=== PATIENT | male | born 1980 | race Caucasian/White ===

== ENCOUNTER 2020-11-22 21:42 | Emergency (ER) | payer OTHER ==
[2020-11-22 22:22] LABS: BASOPHIL 0.7 % (0-2); EOSINOPHIL 4.5 % (0-5); HCT 44.1 % (42.0-52.0); HGB 15.1 g/dl (13.2-18.0); LYMPHOCYTE 35.2 % (15-48); MCH 30.3 pg (25.0-31.0); MCHC 34.2 g/dL (32.0-36.0); MCV 88.6 fL (78.0-100.0); MONOCYTE 7.5 % (0-12); MPV 10.2 fL (6.0-9.5); NRBC 0; PLT 239 K/uL (150-400); RBC 4.98 M/uL (4.70-6.00); RDW 12.2 % (11.5-14.0); WBC 8.6 K/uL (4.0-10.5)
[2020-11-22 22:30] LABS: INR 0.96 (0.9-1.2); PROTHROMBIN TIME 12.2 SECONDS (11.8-13.4); PTT 26.6 SECONDS (24.4-34.7)
[2020-11-22 22:36] LABS: ALBUMIN 4.3 g/dL (3.4-5.0); BILIRUBIN - TOTAL 0.6 mg/dL (0.2-1.0); BUN/CREAT RATIO (CALC) 5.9 RATIO; CREATININE 1.18 mg/dL (0.67-1.17); GLOBULIN (CALCULATION) 3.5 g/dL; POTASSIUM 3.4 mmol/L (3.5-5.1); TOTAL PROTEIN 7.8 g/dL (6.4-8.2)
[2020-11-23] MEDS ORDERED: PRILOSEC20 MG PO (02:23)
== END 2020-11-23 02:35 | disposition home or self-care (01) ==
LOC: FER 21:42
PROVIDERS: Emergency Medicine
DX: R07.89 Other chest pain (principal); I10 Essential (primary) hypertension; F17.200 Nicotine dependence, unspecified, uncomplicated
CPT/HCPCS: 36415; 71045; 71275; 80053; 84484; 85025; 85379; 85610; 85730; 93005; J7030; Q9967